=== PATIENT | female | born 1990 | race African-American/Black ===

== ENCOUNTER 2016-10-28 00:52 | Emergency (ER) | payer OTHER ==
[~2016-10-28] VITALS: Ht 157.5 cm; Wt 81.7 kg
--- NOTE | ~2016-10-28 | EKG ---
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
[~2016-10-28 00:52] MED LIST: ADVAIR HFA 230M1 AER; AMOXICILLIN 50500 MG PO; AVELOX400 MG PO; FERROUS SULFAT325 M1 PO; IBUPROFEN 600600 M1 PO; IBUPROFEN 800800 MG PO; INSULIN; LANTUS SOL100 UNIT/1 SQ; LANTUSSOLASTAR; NOVOLOG FL100 UNIT/M SC; PREDNISONE 10 M10 MG PO; TRAMADOL 50 MG50 MG PO
[2016-10-28 01:58] LABS: ABSOLUTE NEUTROPHILS 3.2 thou/uL (1.4-8.2); BASOPHILS 0.5 % (0.0-2.0); EOSINOPHILS 5.4 % (0.0-3.0); HEMATOCRIT 37.5 % (37.0-47.0); HEMOGLOBIN 12.3 gm/dL (12.0-15.0); LYMPHOCYTES 26.3 % (24.0-44.0); MCH 23.1 pg (26.0-34.0); MCHC 32.8 g/dL (28.0-37.0); MCV 70.4 fL (80.0-100.0); MONOCYTES 11.2 % (1.0-8.0); PLATELET COUNT 163 thou/uL (150-400); POLYS 56.6 % (36.0-66.0); RBC 5.33 mil/uL (4.20-5.00); WBC 5.7 thou/uL (4.0-11.0)
[2016-10-28 02:02] LABS: MANUAL DIFF NO
[2016-10-28 02:06] LABS: ANION GAP 9 mmol/L (7-16); BUN 10 mg/dL (7-18); CALCIUM 9.2 mg/dL (8.5-10.1); CHLORIDE 102 mmol/L (98-107); CO2 28 mmol/L (21-32); GLUCOSE 232 mg/dL (74-106); POTASSIUM 3.9 mmol/L (3.5-5.1); SODIUM 139 mmol/L (136-145)
[2016-10-28 02:14] LABS: ALBUMIN 3.4 g/dL (3.4-5.0); ALKALINE PHOSPHATASE 361 U/L (46-116); MAGNESIUM 1.7 mg/dL (1.8-2.4); SGOT 51 U/L (15-37); SGPT 55 U/L (30-65); TOTAL PROTEIN 7.9 g/dL (6.4-8.2); TROPONIN-I < 0.04 ng/mL (<0.04-0.07)
[2016-10-28 02:17] LABS: LARGE PLATELETS OCCASIONAL
[2016-10-28 02:18] LABS: ANISOCYTOSIS 1+; HYPOCHROMASIA SLIGHT
[2016-10-28 02:19] LABS: MICROCYTES 2+; POLYCHROMASIA 1+
[2016-10-28] MEDS ORDERED: DOXYCYCLINE 10100 MG PO (02:42)
[2016-10-28] MEDS ORDERED: PREDNISONE 20 M20 MG PO (02:42)
[2016-10-28] MEDS ORDERED: VENTOLIN HFA 1818 GM (19:20)
== END 2016-10-28 02:53 | disposition home or self-care (01) ==
LOC: ER 00:52
PROVIDERS: Emergency Medicine
DX: J20.9 Acute bronchitis, unspecified (principal); J45.909 Unspecified asthma, uncomplicated; D86.9 Sarcoidosis, unspecified; E11.9 Type 2 diabetes mellitus without complications; Z79.4 Long term (current) use of insulin

== ENCOUNTER 2016-10-28 18:12 | Observation (INO) | payer OTHER ==
[~2016-10-28] VITALS: Ht 157.5 cm; Wt 83.1 kg
--- NOTE | ~2016-10-28 | 2DMMODE ---
[facility] [address] [place] [address] 2 D/M-MODE ECHOCARDIOGRAM Name: YAMILNELIDA ELIZABETH Room #: 200-I ADM IN M.R.#: [id number] Admission: 10/28/16 Attend Phys: Jessi Olivier Discharge: Date of : 89 Date of Service: 10/30/16 1442 Report #: [id number] THIS REPORT FOR: //name// APPROVED REPORT Study performed: 10/30/2016 12:44:38 EXAM: Comprehensive 2D, Doppler, and color-flow Echocardiogram Patient Location: Echo lab Room #: 200 Status: routine BSA: 1.83 HR: 88 bpm BP: 119/78 mmHg Rhythm: NSR Other Information Study Quality: Adequate Indications Diabetes Dyspnea Hx: Sarcoidosis 2D Dimensions RVDd: 33.31 mm LVEF(%): 80.44 (>50%) IVSd: 10.12 (7-11mm) LVOT Diam: 18.69 (18-24mm) LVDd: 35.92 mm PWd: 10.39 (7-11mm) Ascending Ao: 21.98 (22-36mm) LVDs: 18.61 (25-40mm) Aortic Root: 22.62 mm Gonzales's LVEF: 80.44 % Volumes Left Atrial Volume (Systole) Single Plane 4CH: 28.94 mL Single Plane 2CH: 28.42 mL LA ESV Index: 17.43 mL/m2 Aortic Valve AoV Peak Mamadou.: 1.52 m/s AO Peak Gr.: 9.21 mmHg LVOT Max P.95 mmHg LVOT Max V: 1.41 m/s MEJIA Vmax: 2.55 cm2 Mitral Valve [facility] [place] [address] [place] [address] 2 D/M-MODE ECHOCARDIOGRAM Name: YAMILNELIDA [facility] Room #: 200-I [facility] IN ..#: [id number] Admission: 10/28/16 Attend Phys: Jessi Olivier Discharge: Date of : 89 Date of Service: 10/30/16 1442 Report #: [id number] E/A Ratio: 1.4 MV Decel. Time: 229.77 ms MV E Max Mamadou.: 0.99 m/s MV A Mamadou.: 0.70 m/s MV PHT: 66.63 ms IVRT: 73.82 ms Pulmonary Valve PV Peak Mamadou.: 1.43 m/s PV Peak Gr.: 8.20 mmHg Pulmonary Vein P Vein S: 0.62 m/s P Vein D: 0.72 m/s P Vein S/D Ratio: 0.86 Tricuspid Valve TR Peak Mamadou.: 2.79 m/s RAP Estimate: 5.00 mmHg TR Peak Gr.: 31.15 mmHg PA Pressure: 36.00 mmHg Left Ventricle The left ventricle is normal size. There is normal LV segmental wall motion. There is normal left ventricular wall thickness. The left ventricular systolic function is normal. LVEF is 60-65%. The left ventricular diastolic function is normal. Right Ventricle The right ventricle is normal size. The right ventricular systolic function is normal. Atria The left atrium size is normal. The right atrium size is normal. Aortic Valve The aortic valve is normal in structure. No aortic regurgitation is present. There is no aortic valvular stenosis. Mitral Valve The mitral valve is normal in structure. There is no mitral valve regurgitation noted. No evidence of mitral valve stenosis. Tricuspid Valve The tricuspid valve is normal in structure. There is trace tricuspid regurgitation. Estimated PAP of 36mmHg. [address] [address] 2 D/M-MODE ECHOCARDIOGRAM Name: YAMILNELIDA ELIZABETH Room #: 200-I [facility] IN .R.#: [id number] Admission: 10/28/16 Attend Phys: Jessi Olivier Discharge: Date of : 89 Date of Service: 10/30/16 1442 Report #: [id number] Pulmonic Valve Pulmonic valve is not well visualized. There is no pulmonic valvular regurgitation. Great Vessels The aortic root is normal in size. IVC is normal in size and collapses >50% with inspiration. Pericardium There is no pericardial effusion. <Conclusion> The left ventricle is normal size. The left ventricular systolic function is normal. The left ventricular diastolic function is normal. The right ventricle is normal size. The left atrium size is normal. The aortic valve is normal in structure. There is no mitral valve regurgitation noted. There is trace tricuspid regurgitation. Estimated PAP of 36mmHg. <ELECTRONICALLY SIGNED> By: Fernando Mariano MD 10/30/16 1442 144 144 Fernando Mariano MD /INF
--- NOTE | ~2016-10-28 | HC ---
[facility] [place] [place] [address] [address] [place] [address] CONSULTATION Name: NELIDA LOBO Room #: 200-I [facility] Isaac Carter#: [id number] Admission: 10/28/16 Attend Phys: Lico Jean MD Discharge: 10/31/16 Date of : 89 Report #: [id number] THIS REPORT FOR: //name// CC: Mitchel Jean DATE OF SERVICE: 10/29/2016 REASON FOR CONSULTATION: Dyspnea. IMPRESSION: 1. Exacerbation of sarcoid. 2. Bronchitis. 3. History of bronchopulmonary dysplasia. 4. Diabetes. PLAN: Agree with antibiotics. We will see if we can hold off on corticosteroids and continue aerosol therapy, check echocardiogram. We will ask for rheumatology opinion as patient has splenomegaly also. HISTORY OF PRESENT ILLNESS: A very pleasant 26-year-old female with history of diabetes, comes in with exacerbation with cough, shortness of breath. No definite sputum production. Also with hyperglycemia. She initially was seen early in the morning on the , then came back in, in the evening with worsening. This morning, she relates she feels better. PAST SURGICAL HISTORY: Pediatric cardiac surgery, eye surgery and liver biopsy ALLERGIES: None known. SOCIAL HISTORY: Negative tobacco, negative ETOH. FAMILY HISTORY: Positive for sarcoid and I believe lupus. REVIEW OF SYSTEMS: Cough, shortness of breath, wheeze. PHYSICAL EXAMINATION: VITAL SIGNS: Temperature 97.6, pulse 80, respirations 18, BP 148/98. EYES: Negative icterus. NECK: Trachea midline. LUNGS: No wheeze. HEART: Regular. ABDOMEN: Bowel sounds present. EXTREMITIES: Showed no edema. LABORATORY DATA: SGOT 51 and alkaline phosphatase 361. White count 5.7, [facility] [place] [place] [address] [place] [address] CONSULTATION Name: NELIDA LOBO ELIZABETH Room #: 200-I [facility].#: [id number] Admission: 10/28/16 Attend Phys: Lico Jean MD Discharge: 10/31/16 Date of : 89 Report #: [id number] hemoglobin 12.3, platelets 163. Eosinophils 5.4. BNP 47. Chest x-ray, little change with bilateral infiltrates, UCG negative. CT PE protocol showed no emboli, patchy infiltrates bilateral, mediastinal bilateral hilar adenopathy, splenomegaly and cholelithiasis. <ELECTRONICALLY SIGNED> By: Carolyn Reynolds MD 10/31/16 1907 [id number] 0746 Carolyn Reynolds MD /nt
[~2016-10-28 18:12] MED LIST changes: +DOXYCYCLINE 10100 MG PO; +PREDNISONE 20 M20 MG PO
[2016-10-28 18:14] VITALS: BP 125/79
[2016-10-28 18:35] LABS: URINE BILIRUBIN NEGATIVE (Negative); URINE BLOOD NEGATIVE (Negative); URINE COLOR YELLOW; URINE GLUCOSE-RANDOM* 3+ (Negative); URINE KETONES NEGATIVE (Negative); URINE NITRITE NEGATIVE (Negative); URINE PROTEIN (DIPSTICK) NEGATIVE (Negative); URINE SPECIFIC GRAVITY <= 1.005 (1.003-1.035); URINE UROBILINOGEN 0.2 E.U./dl (0.2-1.0)
[2016-10-28] MEDS ORDERED: VENTOLIN HFA 1818 GM (19:20)
[2016-10-28 19:43] LABS: ABSOLUTE NEUTROPHILS 3.7 thou/uL (1.4-8.2); BASOPHILS 0.2 % (0.0-2.0); EOSINOPHILS 0.1 % (0.0-3.0); HEMOGLOBIN 11.5 gm/dL (12.0-15.0); LYMPHOCYTES 16.2 % (24.0-44.0); MCH 23.2 pg (26.0-34.0); MCHC 32.8 g/dL (28.0-37.0); MCV 70.6 fL (80.0-100.0); MONOCYTES 6.3 % (1.0-8.0); PLATELET COUNT 150 thou/uL (150-400); POLYS 77.2 % (36.0-66.0); RBC 4.96 mil/uL (4.20-5.00); WBC 4.7 thou/uL (4.0-11.0)
[2016-10-28 19:55] LABS: CALCIUM 9.1 mg/dL (8.5-10.1); CREATININE 1.1 mg/dL (0.6-1.0); POTASSIUM 4.6 mmol/L (3.5-5.1)
[2016-10-28 19:59] LABS: ALBUMIN 3.2 g/dL (3.4-5.0); DIRECT BILIRUBIN 0.2 mg/dL (<0.1-0.3); TOTAL BILIRUBIN 0.7 mg/dL (<0.1-1.0); TOTAL PROTEIN 7.5 g/dL (6.4-8.2)
[2016-10-28 20:04] LABS: MANUAL DIFF NO
[2016-10-28 22:03] VITALS: BP 143/89
[2016-10-28 22:08] VITALS: BP 143/89
[2016-10-28 22:24] VITALS: BP 146/70
[2016-10-28 22:31] VITALS: BP 145/98
[2016-10-29 00:40] VITALS: BP 135/86
[2016-10-29 03:54] LABS: CALCIUM 8.4 mg/dL (8.5-10.1); POTASSIUM 3.7 mmol/L (3.5-5.1)
[2016-10-29 04:00] VITALS: BP 105/73
[2016-10-29 07:16] VITALS: BP 123/71
[2016-10-29 11:02] VITALS: BP 134/81
[2016-10-29 16:05] VITALS: BP 148/98
[2016-10-29 20:30] VITALS: BP 130/86
[2016-10-30 03:45] VITALS: BP 119/78
[2016-10-30 04:09] LABS: GLYCOHEMOGLOBIN (HGB A1C) 8.5 % (4.8-5.6)
[2016-10-30 04:35] VITALS: BP 113/78
[2016-10-30 06:05] LABS: ABSOLUTE NEUTROPHILS 2.4 thou/uL (1.4-8.2); BASOPHILS 0.6 % (0.0-2.0); EOSINOPHILS 6.5 % (0.0-3.0); HEMATOCRIT 32.2 % (37.0-47.0); HEMOGLOBIN 10.7 gm/dL (12.0-15.0); LYMPHOCYTES 31.6 % (24.0-44.0); MCH 23.4 pg (26.0-34.0); MCHC 33.3 g/dL (28.0-37.0); MCV 70.4 fL (80.0-100.0); MONOCYTES 10.4 % (1.0-8.0); PLATELET COUNT 160 thou/uL (150-400); POLYS 50.9 % (36.0-66.0); RBC 4.57 mil/uL (4.20-5.00); RDW 18.3 % (10.5-14.5); WBC 4.7 thou/uL (4.0-11.0)
[2016-10-30 06:14] LABS: MANUAL DIFF NO
[2016-10-30 06:22] LABS: CALCIUM 9.1 mg/dL (8.5-10.1); CREATININE 0.9 mg/dL (0.6-1.0); MAGNESIUM 1.5 mg/dL (1.8-2.4); POTASSIUM 3.7 mmol/L (3.5-5.1)
[2016-10-30 08:33] LABS: ANISOCYTOSIS 1+; HYPOCHROMASIA 1+; MICROCYTES 3+; PLATELET ESTIMATE NORMAL
[2016-10-30 18:43] VITALS: BP 126/85
[2016-10-31 04:01] VITALS: BP 113/72
[2016-10-31 04:29] LABS: HEMOGLOBIN 10.7 gm/dL (12.0-15.0); MCH 22.9 pg (26.0-34.0); MCHC 32.4 g/dL (28.0-37.0); MCV 70.9 fL (80.0-100.0); PLATELET COUNT 168 thou/uL (150-400); RBC 4.66 mil/uL (4.20-5.00)
[2016-10-31 04:35] LABS: MANUAL DIFF YES
[2016-10-31 04:37] LABS: CALCIUM 9.2 mg/dL (8.5-10.1); CREATININE 0.8 mg/dL (0.6-1.0); MAGNESIUM 1.4 mg/dL (1.8-2.4); POTASSIUM 3.9 mmol/L (3.5-5.1)
[2016-10-31 05:54] LABS: ABSOLUTE NEUTROPHILS 2.8 thou/uL (1.4-8.2); ANISOCYTOSIS 2+; HYPOCHROMASIA SLIGHT; LARGE PLATELETS OCCASIONAL; MICROCYTES 2+; TOTAL CELL COUNT 100
[2016-10-31 08:16] VITALS: BP 100/65
[2016-10-31 10:24] VITALS: BP 100/65
[2016-10-31 11:52] VITALS: BP 121/77
[2016-10-31] MEDS ORDERED: DIFLUCAN200 MG PO (12:03)
[2016-10-31 15:41] VITALS: BP 119/78
[2016-10-31 23:07] LABS: INFLUENZA B Negative (Negative); METAPNEUMOVIRUS Negative (Negative)
== END 2016-10-31 16:00 | disposition home or self-care (01) ==
LOC: ER 18:12 → EROBS 21:09 → 2N 21:09 → ENTRNSPT 10-30 16:26 → EDTRNSPTSTS 10-31 14:43 → EDTRNSPT 10-31 14:53 → 2N 10-31 16:00
PROVIDERS: Internal Medicine; Nurse Practitioner; Nurse Practitioner Acute Care
DX: J40 Bronchitis, not specified as acute or chronic (principal); D86.9 Sarcoidosis, unspecified; F80.82 Social pragmatic communication disorder; E11.9 Type 2 diabetes mellitus without complications
CPT/HCPCS: 27000

== ENCOUNTER 2016-11-18 16:54 | Emergency (ER) | payer OTHER ==
[~2016-11-18] VITALS: Ht 157.5 cm; Wt 83.0 kg
--- NOTE | ~2016-11-18 | EKG ---
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 : 1990 Requested By: Barrera Carballo Order Number: [id number] MD: Neymar Pisano Measurements Intervals [place] Rate: 94 P: 45 IN: 146 QRS: 6 QRSD: 84 T: 1 QT: 348 QTc: 436 Interpretive Statements Sinus rhythm Low voltage, precordial leads Abnormal T, consider ischemia, anterior leads Compared to ECG 10/28/2016 01:08:41 Low QRS voltage now present T-wave abnormality now present Possible ischemia now present Electronically Signed On 11-18-2016 22:47:42 CDT by Neymar Pisano [email or web address] <ELECTRONICALLY SIGNED> By: Neymar Pisano MD 11/18/16 2247 1706 1706 Neymar Pisano MD /EPI
[~2016-11-18 16:54] MED LIST changes: +DIFLUCAN200 MG PO; +VENTOLIN HFA 1818 GM
[2016-11-18 17:58] LABS: BASOPHILS 0.5 % (0.0-2.0); EOSINOPHILS 6.1 % (0.0-3.0); HEMATOCRIT 40.7 % (37.0-47.0); HEMOGLOBIN 13.6 gm/dL (12.0-15.0); LYMPHOCYTES 20.1 % (24.0-44.0); MCH 23.4 pg (26.0-34.0); MCHC 33.4 g/dL (28.0-37.0); MCV 70.1 fL (80.0-100.0); MONOCYTES 11.5 % (1.0-8.0); PLATELET COUNT 166 thou/uL (150-400); POLYS 61.8 % (36.0-66.0); RBC 5.81 mil/uL (4.20-5.00); RDW 18.2 % (10.5-14.5); WBC 4.9 thou/uL (4.0-11.0)
[2016-11-18 17:59] LABS: MANUAL DIFF NO
[2016-11-18 18:06] LABS: URINE BILIRUBIN 1+ (Negative); URINE BLOOD 1+ (Negative); URINE COLOR YELLOW; URINE GLUCOSE-RANDOM* NEGATIVE (Negative); URINE KETONES NEGATIVE (Negative); URINE LEUKOCYTES-REFLEX NEGATIVE (Negative); URINE PROTEIN (DIPSTICK) 2+ (Negative); URINE SPECIFIC GRAVITY 1.025 (1.003-1.035); URINE UROBILINOGEN 0.2 E.U./dl (0.2-1.0)
[2016-11-18 18:08] LABS: ICTOTEST (BILI CONFIRMATORY) Negative (Negative)
[2016-11-18 18:10] LABS: ANION GAP 10 mmol/L (7-16); BUN 6 mg/dL (7-18); CALCIUM 9.6 mg/dL (8.5-10.1); CHLORIDE 102 mmol/L (98-107); CO2 22 mmol/L (21-32); CREATININE 0.8 mg/dL (0.6-1.0); GLUCOSE 212 mg/dL (74-106); POTASSIUM 4.3 mmol/L (3.5-5.1); SODIUM 134 mmol/L (136-145)
[2016-11-18 18:12] LABS: CRYSTALS None Seen /LPF (None Seen); HYALINE CASTS 0-3 Few /LPF (None Seen); SQUAMOUS 0-3 Few /LPF (0-3); URINE RBC 0-2 Rare /HPF (0-2); URINE WBC-REFLEX 0-5 Rare /HPF (0-5)
[2016-11-18 18:16] LABS: ALBUMIN 3.6 g/dL (3.4-5.0); ALKALINE PHOSPHATASE 395 U/L (46-116); SGOT 129 U/L (15-37); SGPT 130 U/L (30-65); TOTAL PROTEIN 8.1 g/dL (6.4-8.2); TROPONIN-I < 0.04 ng/mL (<0.04-0.07)
[2016-11-18 18:34] LABS: MICROCYTES 1+; POLYCHROMASIA OCCASIONAL
[2016-11-18 18:35] LABS: ANISOCYTOSIS 2+; HYPOCHROMASIA 2+
[2016-11-18] MEDS ORDERED: DOXYCYCLINE 10100 MG PO (20:31)
[2016-11-18] MEDS ORDERED: ONDANSETRON HCL4 M2 PO (20:32)
== END 2016-11-18 20:48 | disposition home or self-care (01) ==
LOC: ER 16:54
PROVIDERS: Physician Assistant
DX: D86.9 Sarcoidosis, unspecified (principal); R10.11 Right upper quadrant pain; J18.9 Pneumonia, unspecified organism; R74.0 Nonspecific elevation of levels of transaminase and lactic acid dehydrogenase [LDH]; E11.9 Type 2 diabetes mellitus without complications; Z79.4 Long term (current) use of insulin

== ENCOUNTER → 2017-01-28 | Outpatient (CLI) | payer OTHER ==
[~2017-01-28] MED LIST changes: +AUGMENTIN 875-1 EACH PO; +AZITHROMYCIN 2250 MG PO; +ONDANSETRON HCL4 M2 PO
== END ==
LOC: RAD 12:38
DX: D86.9 Sarcoidosis, unspecified (principal); R06.02 Shortness of breath

== ENCOUNTER 2017-02-17 12:50 | Emergency (ER) | payer OTHER ==
[~2017-02-17] VITALS: Ht 157.5 cm; Wt 81.7 kg
--- NOTE | ~2017-02-17 | EKG ---
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 <ELECTRONICALLY SIGNED> By: Neymar Pisano MD 02/17/17 2326 1531 1531 Neymar Pisano MD /EPI
[2017-02-17 15:19] LABS: ABSOLUTE NEUTROPHILS 3.5 thou/uL (1.4-8.2); BASOPHILS 0.9 % (0.0-2.0); EOSINOPHILS 4.9 % (0.0-3.0); HEMOGLOBIN 12.9 gm/dL (12.0-15.0); LYMPHOCYTES 23.2 % (24.0-44.0); MCH 22.5 pg (26.0-34.0); MCV 68.2 fL (80.0-100.0); MONOCYTES 10.3 % (1.0-8.0); PLATELET COUNT 185 thou/uL (150-400); POLYS 60.7 % (36.0-66.0); RBC 5.73 mil/uL (4.20-5.00); RDW 16.2 % (10.5-14.5); WBC 5.8 thou/uL (4.0-11.0)
[2017-02-17] MEDS ORDERED: TRULICITY0.75 MG/0. (15:37)
[2017-02-17] MEDS ORDERED: PREDNISONE 10 M10 MG PO (15:37)
[2017-02-17 15:38] LABS: CALCIUM 9.8 mg/dL (8.5-10.1); CREATININE 0.9 mg/dL (0.6-1.0); POTASSIUM 4.4 mmol/L (3.5-5.1)
[2017-02-17] MEDS ORDERED: DUONEB 2.5-0.5 M3 ML INH (15:38)
[2017-02-17 15:43] LABS: ALBUMIN 3.5 g/dL (3.4-5.0); TOTAL BILIRUBIN 0.8 mg/dL (<0.1-1.0); TOTAL PROTEIN 7.9 g/dL (6.4-8.2)
[2017-02-17 15:49] LABS: ANISOCYTOSIS 2+; MICROCYTES 2+
[2017-02-17 15:50] LABS: HYPOCHROMASIA SLIGHT; LARGE PLATELETS OCCASIONAL; POLYCHROMASIA OCCASIONAL
[2017-02-17] MEDS ORDERED: PREDNISOLONE 5 M5 MG PO (17:27)
[2017-02-17] MEDS ORDERED: VENTOLIN HFA 1818 GM INH (17:27)
[2017-02-17 17:57] VITALS: BP 121/72
[2017-10-16] MEDS ORDERED: PREDNISONE 5 MG5 M1 PO (08:29)
[2017-10-16] MEDS ORDERED: TRULICITY1.5 MG/0.5 SUBQ (08:30)
[2017-10-16] MEDS ORDERED: FOLIC ACID1 MG PO (08:31)
[2017-10-16] MEDS ORDERED: METHOTREXATE 22.5 MG PO (08:31)
[2017-10-19] MEDS ORDERED: GLUCOPHAGE1000 MG PO (09:56)
[2017-10-19] MEDS ORDERED: PREDNISONE 20 M20 MG PO (09:57)
== END 2017-02-17 18:01 | disposition home or self-care (01) ==
LOC: ER 12:50
PROVIDERS: Physician Assistant
DX: R06.00 Dyspnea, unspecified (principal); R05 Cough; D86.9 Sarcoidosis, unspecified; E11.9 Type 2 diabetes mellitus without complications; Z98.890 Other specified postprocedural states

== ENCOUNTER 2017-02-24 16:42 | Emergency (ER) | payer OTHER ==
[~2017-02-24] VITALS: Ht 157.5 cm; Wt 81.7 kg
[~2017-02-24 16:42] MED LIST changes: +DUONEB 2.5-0.5 M3 ML INH; +PREDNISOLONE 5 M5 MG PO; +TRULICITY0.75 MG/0.; +VENTOLIN HFA 1818 GM INH
[2017-02-24] MEDS ORDERED: ZPAK PO (18:09)
[2017-02-24] MEDS ORDERED: TESSALON PERLE100 MG PO (18:09)
[2017-02-24] MEDS ORDERED: PREDNISONE 5 MG5 MG PO (18:20)
[2017-02-24 18:22] VITALS: BP 123/86
[2017-10-16] MEDS ORDERED: PREDNISONE 5 MG5 M1 PO (08:29)
[2017-10-16] MEDS ORDERED: TRULICITY1.5 MG/0.5 SUBQ (08:30)
[2017-10-16] MEDS ORDERED: FOLIC ACID1 MG PO (08:31)
[2017-10-16] MEDS ORDERED: METHOTREXATE 22.5 MG PO (08:31)
[2017-10-19] MEDS ORDERED: GLUCOPHAGE1000 MG PO (09:56)
[2017-10-19] MEDS ORDERED: PREDNISONE 20 M20 MG PO (09:57)
== END 2017-02-24 18:24 | disposition home or self-care (01) ==
LOC: ER 16:42
DX: J18.9 Pneumonia, unspecified organism (principal); D86.9 Sarcoidosis, unspecified; E11.9 Type 2 diabetes mellitus without complications; Z79.4 Long term (current) use of insulin

== ENCOUNTER → 2017-02-26 | Outpatient (CLI) | payer OTHER ==
[~2017-02-26] MED LIST changes: +BYDUREON P2 MG/0.65 SUBQ; +FOLIC ACID1 MG PO; +GLUCOPHAGE1000 MG PO; +KEFLEX500 M1 PO; +METHOTREXATE 22.5 MG PO; +MUCINEX DM ER1 EACH PO; +NOVOLOG100 UNIT/1 SUBQ; +PREDNISONE 5 MG5 M1 PO; +PREDNISONE 5 MG5 MG PO; +TESSALON PERLE100 MG PO; +TRULICITY1.5 MG/0.5 SUBQ; +ZPAK PO
== END ==
LOC: RAD 13:17
DX: R06.00 Dyspnea, unspecified (principal)

== ENCOUNTER 2017-03-28 19:18 | Emergency (ER) | payer OTHER ==
[~2017-03-28] VITALS: Ht 157.5 cm; Wt 81.7 kg
[~2017-03-28 19:18] MED LIST changes: -BYDUREON P2 MG/0.65 SUBQ; -FOLIC ACID1 MG PO; -GLUCOPHAGE1000 MG PO; -KEFLEX500 M1 PO; -METHOTREXATE 22.5 MG PO; -MUCINEX DM ER1 EACH PO; -NOVOLOG100 UNIT/1 SUBQ; -PREDNISONE 5 MG5 M1 PO; -TRULICITY1.5 MG/0.5 SUBQ
[2017-03-28 20:11] LABS: URINE BILIRUBIN NEGATIVE (Negative); URINE BLOOD TRACE (Negative); URINE CLARITY CLEAR; URINE COLOR YELLOW; URINE GLUCOSE-RANDOM* 2+ (Negative); URINE KETONES NEGATIVE (Negative); URINE LEUKOCYTES NEGATIVE (Negative); URINE NITRITE NEGATIVE (Negative); URINE PROTEIN (DIPSTICK) TRACE (Negative); URINE SPECIFIC GRAVITY >= 1.030 (1.005-1.035); URINE UROBILINOGEN 0.2 E.U./dl (0.2-1.0)
[2017-03-28 20:26] LABS: ABSOLUTE NEUTROPHILS 3.3 thou/uL (1.4-8.2); BASOPHILS 0.7 % (0.0-2.0); EOSINOPHILS 5.2 % (0.0-3.0); HEMATOCRIT 36.1 % (37.0-47.0); LYMPHOCYTES 29.3 % (24.0-44.0); MCH 22.5 pg (26.0-34.0); MCHC 33.2 g/dL (28.0-37.0); MCV 67.8 fL (80.0-100.0); MONOCYTES 9.4 % (1.0-8.0); PLATELET COUNT 211 thou/uL (150-400); POLYS 55.4 % (36.0-66.0); RBC 5.32 mil/uL (4.20-5.00); RDW 17.6 % (10.5-14.5)
[2017-03-28 20:47] LABS: ANISOCYTOSIS 1+; LARGE PLATELETS RARE; MICROCYTES 1+
[2017-03-28 20:53] LABS: CALCIUM 9.1 mg/dL (8.5-10.1); CREATININE 1.1 mg/dL (0.6-1.0); POTASSIUM 3.7 mmol/L (3.5-5.1)
[2017-03-28 21:48] VITALS: BP 136/74
[2017-03-28] MEDS ORDERED: TESSALON PERLE100 MG PO (21:53)
[2017-03-28] MEDS ORDERED: PREDNISONE 20 M20 MG PO (21:53)
[2017-03-28] MEDS ORDERED: AZITHROMYCIN 2250 MG PO (21:53)
[2017-03-31 09:42] LABS: POC ANION GAP Outside Report Range mmol/L (7-16); POC BUN 16 mg/dL (7-18); POC CA IONIZED 2.6 mg/dL (4.5-5.3); POC CHLORIDE 112 mmol/L (98-107); POC CREATININE 1.1 mg/dL (0.6-1.3); POC GLUCOSE 259 mg/dL (70-99); POC HEMOGLOBIN 11.9 g/dL (12.0-15.0); POC POTASSIUM > 7.5 mmol/L (3.5-5.1); POC SODIUM 127 mmol/L (136-145); POC TCO2 Outside Report Range mmol/L (21-32)
[2017-10-16] MEDS ORDERED: PREDNISONE 5 MG5 M1 PO (08:29)
[2017-10-16] MEDS ORDERED: TRULICITY1.5 MG/0.5 SUBQ (08:30)
[2017-10-16] MEDS ORDERED: METHOTREXATE 22.5 MG PO (08:31)
[2017-10-16] MEDS ORDERED: FOLIC ACID1 MG PO (08:31)
[2017-10-19] MEDS ORDERED: GLUCOPHAGE1000 MG PO (09:56)
[2017-10-19] MEDS ORDERED: PREDNISONE 20 M20 MG PO (09:57)
== END 2017-03-28 22:09 | disposition home or self-care (01) ==
LOC: ER 19:18
PROVIDERS: Nurse Practitioner Family
DX: J40 Bronchitis, not specified as acute or chronic (principal); E11.9 Type 2 diabetes mellitus without complications; Z79.4 Long term (current) use of insulin

== ENCOUNTER 2017-03-30 19:25 | Inpatient (IN) | payer OTHER ==
[~2017-03-30] VITALS: Ht 160 cm; Wt 90.7 kg
--- NOTE | ~2017-03-30 | HC ---
[facility] [place] [address] CONSULTATION Name: NELIDA LOBO Room #: 356-P [facility] IN M.R.#: [id number] Admission: 03/30/17 Attend Phys: Bernardo Bello MD Discharge: 04/05/17 Date of : 89 Report #: [id number] THIS REPORT FOR: //name// CC: Bernardo Thompsonie Venancio Mcghee DATE OF SERVICE: 04/03/2017 HISTORY OF PRESENT ILLNESS: This is a 26-year-old female patient who was evaluated by me for the numbness. The symptoms are pretty nonstructured. She indicated that she had numbness, which are present in both lower extremities as well as both upper extremities. Even both side of the face is numb. On the left side, she is complaining of some pain in the face area in addition to the numbness. All these symptoms are pretty nonstructured and poorly defined. REVIEW OF SYSTEMS: Indicate she has a history of sarcoidosis. She takes steroids. She takes supplemental oxygen. 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 She has respiratory problem. She also has been followed by textile worker. She denies any history of anxiety or depression. She denies any history of stroke. Presently, she is being followed by multiple consultants. She does have a history of sarcoidosis. Her MCV is low even if her hemoglobin is normal. Her blood sugar has fluctuated and it has gone as high as 468 recently. This was her relevant 14-point of review of system, which I carried out. PAST MEDICAL HISTORY: Positive for sarcoid. FAMILY HISTORY: Negative for early age stroke. SOCIAL HISTORY: She has supportive family. Her mother was here. She does not smoke. PHYSICAL EXAMINATION: Indicate she is alert, she is responsive. Her speech, concentration, fund of knowledge and memory is at her baseline. Cranial nerve examination 2-12 indicate blindness in the left eye. It is not clear what the etiology was. Initially they thought there was some hole and subsequently they thought it might be sarcoid. When she gives a good effort, she is able to move all 4 extremities. Her position sense is intact. Her reflexes are normal. She complained of pain even when the reflexes are being checked. I cannot tell about fundus. There is no meningeal sign. There is no carotid bruit. She is reasonably well-developed individual. She does not have any dysmorphic features of eyes, ears and face. There is no meningeal sign in this patient. There is no thyroid mass. Pulses are difficult to feel. She has no edema, cyanosis or jaundice. Her hearing looks okay. She does not have any vision in [address] [place] [address] CONSULTATION Name: NELIDA LOBO Room #: 356-P [facility] IN M.R.#: [id number] Admission: 03/30/17 Attend Phys: Bernardo Bello MD Discharge: 04/05/17 Date of : [birth year] Report #: [id number] the left eye. Cardiac examination does not appear to be showing any atrial fibrillation or any definite abnormality. No respiratory difficulty was noted. Blood pressure is 136/89, respirations 18, pulse is 110, temperature is 98.5. White count is 12. Vital signs otherwise appear unremarkable. Her blood pressure is 125/87, respirations 16, pulse 87, temperature is 98.6. She did have an MRI, which was mostly unremarkable. Her last B12 was okay. Her TSH was okay. IMPRESSION: I suspect this patient may have some neuropathy. She is diabetic and she has sarcoid. Both can predispose her for neuropathy. She does not have anything serious like multiple sclerosis. I will exclude any spine pathology by doing an MRI in that region. If that is negative, there is a limited thing neurologically we can do except for doing an EMG as an outpatient. RECOMMENDATIONS: 1. We will do the MRI of the lumbar spine. 2. She will need an EMG as an outpatient. 3. I suspect part of her symptom may be because of neuropathy, both because of her diabetes as well as her sarcoid. I discussed all of it with the patient and the family. I discussed with her our plan and they are agreeable with that plan. Thank you very much for this referral and we will follow this patient along with you. <ELECTRONICALLY SIGNED> By: Bridger Barker MD 04/08/17 0721 1353 181 Bridger Barker MD /nt
--- NOTE | ~2017-03-30 | HC ---
[facility] [address] [place] [address] CONSULTATION Name: NELIDA LOBO Room #: 356-P [facility] IN M.R.#: [id number] Admission: 03/30/17 Attend Phys: Bernardo Bello MD Discharge: 04/05/17 Date of : [birth year] Report #: [id number] THIS REPORT FOR: //name// CC: Mitzy Mcghee DATE OF SERVICE: 03/31/2017 REFERRING PROVIDER: NINA Lucas REASON FOR CONSULTATION: Shortness of breath. HISTORY OF PRESENT ILLNESS: Our group was asked to evaluate the patient in consultation while hospitalized in [facility]. She is followed by Dr. Reynolds of our group and recently referred to [facility] for a second opinion regarding underlying history of sarcoidosis. By patient history, she has history of bronchopulmonary dysplasia associated with prematurity, roughly 25-26 weeks that was complicated by what sounds like persistent circulation requiring surgical intervention, exactly unclear what surgery was done at that time. The patient has had ongoing chronic respiratory problems since that time; however, 3 years ago was diagnosed by liver biopsy with sarcoidosis. The patient has what appears to be on most recent CT imaging chronic fibrotic changes and bronchiectasis anteriorly, predominantly in the middle lobe and lingula, but may have some anterior upper lobe problems as well. She has been having ongoing difficulty with increasing dyspnea, cough and has been on multiple antibiotics recently. Recently seen by Dr. Villasenor in [facility] just a few days ago and her prednisone boosted to 20 mg daily, and had been on chronically 10 mg daily. States she has been difficulty tapering off systemic steroids and starting them about 2 years ago and this has been complicated by diabetes mellitus type 2. On presentation, she had markedly elevated blood sugars. The patient reportedly also has some complicating features from her sarcoidosis including left eye blindness from likely sarcoid related disease that was not diagnosed until after the sarcoid diagnosis. ALLERGIES: None known. PAST MEDICAL HISTORY: 1. Sarcoidosis. 2. Diabetes mellitus type 2. [facility] [address] [place] [address] CONSULTATION Name: NELIDA LOBO ELIZABETH Room #: 356-P [facility] IN M.R.#: [id number] Admission: 03/30/17 Attend Phys: Bernardo Bello MD Discharge: 04/05/17 Date of : 89 Report #: [id number] 3. Chronic fibrotic lung disease associated to #1 as well as to bronchopulmonary dysplasia. PAST SURGICAL HISTORY: Includes: 1. Left thoracotomy with surgical intervention, unclear, according to mom some kind of valvular surgery, although may have been correction of a persistent circulation. 2. Cataract extraction. SOCIAL HISTORY: Never smoker. States she is medically disabled. No alcohol consumption. FAMILY HISTORY: Significant for mother who has systemic lupus erythematosus and a paternal uncle with sarcoidosis. REVIEW OF SYSTEMS: CONSTITUTIONAL: Notes no fever, chills, just some general malaise. ENT: No upper respiratory congestion, rhinorrhea or dysphagia. CARDIOVASCULAR: Some chest heaviness. GASTROINTESTINAL: No nausea, vomiting or abdominal pain. Has known history of hepatic sarcoid. GENITOURINARY: No dysuria, no frequency, no hematuria. INTEGUMENT: No new rash. MUSCULOSKELETAL: No new joint pains or swelling, possible osteo sarcoidosis. PHYSICAL EXAMINATION: VITAL SIGNS: The patient is afebrile, pulse 90s and regular, respiratory rate 22, blood pressure 123/79, oxygen saturation 100% on 3 liters nasal cannula. GENERAL: This is an obese, cushingoid appearing young female who is in no distress. HEENT: Clear oropharynx, Mallampati 2 airway. NECK: Supple, no lymphadenopathy. LUNGS: Basilar inspiratory crackles, no wheezes. CARDIOVASCULAR: Heart was regular. No murmurs appreciated. ABDOMEN: Obese, soft, nontender. No hepatomegaly appreciated. EXTREMITIES: Without edema. They are warm with 2+ pulses. INTEGUMENT: No rash identified. LABORATORY DATA: Chest x-ray revealed diminished lung volumes. There appeared to be a more elevated right hemidiaphragm and possible right pleural effusion. White blood cell count was 7000, hemoglobin 11, hematocrit 35, platelet count of 133. Mean cellular volume 69. Sodium 133, potassium 5.4, chloride 100, bicarbonate 24, BUN 16, creatinine 1.1, glucose is 577, alkaline phosphatase elevated at 239 with the rest of the liver enzymes and bilirubin normal. No LDH was sent. Arterial blood gas on 2 liters revealed pH 7.40, pCO2 of 37, pO2 of 83, and bicarbonate 22. [address] [address] CONSULTATION Name: YAMIL,NELIDA JOHNSON Room #: 356-P [facility] IN M.R.#: [id number] Admission: 03/30/17 Attend Phys: Bernardo Bello MD Discharge: 04/05/17 Date of : [birth year] Report #: [id number] IMPRESSION: 1. Acute on chronic hypoxemic respiratory failure. Some concern with possible right pleural effusion or community-acquired pneumonia failing outpatient therapy would also be of concern given her history of bronchiectasis and fibrosis. She may have some chronic infectious process such as atypical Mycobacterium or other resistant pathogen to current antimicrobial therapy. Cultures would be warranted. Consideration for bronchoscopy should also be made. 2. History of sarcoidosis, requiring chronic systemic steroids for management, recently followed by the [facility] at [facility]. 3. Elevated alkaline phosphatase. 4. History of bronchopulmonary dysplasia. 5. Obesity. 6. Diabetes mellitus, poorly controlled at present. 7. Chronic systemic corticosteroids. 8. Hyperkalemia. SUGGESTIONS: 1. Add Levaquin. 2. Sputum for routine and AFB cultures. 3. Decubitus x-rays to evaluate for possible right pleural effusion, consider thoracentesis if present. 4. Boost steroids for now. 5. Continue with bronchodilators for airway clearance. 6. Better management of diabetes mellitus type 2. Defer to primary team. 7. Dr. Reynolds to assume care of this patient when available. 8. We will also check echocardiogram. Thank you for requesting our suggestions. <ELECTRONICALLY SIGNED> By: Thierry Nieto MD 04/11/17 1452 1128 1925 Thierry Nieto MD /nt
--- NOTE | ~2017-03-30 | EKG ---
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: MERLIN : 1990 Requested By: Shoaib Roberts Order Number: [id number] MD: Peter Bernal Measurements Intervals [place] Rate: 109 P: 53 CA: 144 QRS: 15 QRSD: 82 T: 36 QT: 327 QTc: 441 Interpretive Statements Sinus tachycardia Low voltage, precordial leads Compared to ECG 02/17/2017 15:31:04 Anterior T wave abnormality no longer present Electronically Signed On 03-31-2017 8:04:46 SLEEPER CUTTER by Peter Bernal [email or web address] <ELECTRONICALLY SIGNED> By: Peter Bernal MD, [facility] 03/31/17 0804 00 00 Peter Bernal MD, [facility] /EPI
--- NOTE | ~2017-03-30 | 2DMMODE ---
[facility] [address] [place] [address] 2 D/M-MODE ECHOCARDIOGRAM Name: YAMILNELIDA JOHNSON Room #: 356-P ADM IN M.R.#: [id number] Admission: 03/30/17 Attend Phys: Bernardo Bello, Discharge: Date of : 89 Date of Service: 03/31/17 1442 Report #: [id number] THIS REPORT FOR: //name// APPROVED REPORT Study performed: 03/31/2017 14:02:30 EXAM: Comprehensive 2D, Doppler, and color-flow Echocardiogram Patient Location: Echo lab Room #: 356 Status: routine BSA: 1.91 HR: 105 bpm BP: 123/79 mmHg Rhythm: Tachycardia Other Information Study Quality: Adequate Indications Dyspnea/sarcoidosis, DM 2D Dimensions RVDd: 27.42 mm LVEF(%): 62.16 (>50%) IVSd: 9.70 (7-11mm) LVOT Diam: 18.51 (18-24mm) LVDd: 41.33 mm PWd: 10.05 (7-11mm) Ascending Ao: 24.03 (22-36mm) LVDs: 27.64 (25-40mm) Aortic Root: 26.18 mm Gonzales's LVEF: 62.16 % Volumes Left Atrial Volume (Systole) Single Plane 4CH: 28.97 mL Single Plane 2CH: 34.15 mL LA ESV Index: 18.00 mL/m2 Aortic Valve AoV Peak Mamadou.: 1.68 m/s AO Peak Gr.: 11.26 mmHg LVOT Max P.90 mmHg LVOT Max V: 1.31 m/s MEJIA Vmax: 2.10 cm2 Mitral Valve E/A Ratio: 1.1 MV Decel. Time: 220.02 ms [facility] [place] [address] 2 D/M-MODE ECHOCARDIOGRAM Name: YAMILNELIDA [place] Room #: 356-P [facility] IN M.R.#: [id number] Admission: 03/30/17 Attend Phys: Bernardo Bello, Discharge: Date of : 89 Date of Service: 03/31/17 1442 Report #: [id number] MV E Max Mamadou.: 0.92 m/s MV A Mamadou.: 0.82 m/s MV PHT: 63.80 ms IVRT: 66.90 ms Pulmonary Valve PV Peak Mamadou.: 1.35 m/s PV Peak Gr.: 7.25 mmHg Left Ventricle The left ventricle is normal size. There is normal LV segmental wall motion. There is normal left ventricular wall thickness. Left ventricular systolic function is normal. LVEF is 65%. The left ventricular diastolic function is normal. Right Ventricle The right ventricle is normal size. The right ventricular systolic function is normal. Atria The left atrium size is normal. The right atrium size is normal. Aortic Valve The aortic valve is normal in structure. No aortic regurgitation is present. There is no aortic valvular stenosis. Mitral Valve The mitral valve is normal in structure. There is no mitral valve regurgitation noted. No evidence of mitral valve stenosis. Tricuspid Valve The tricuspid valve is normal in structure. There is no tricuspid valve regurgitation noted. Unable to assess PA pressure. Pulmonic Valve Pulmonic valve is not well visualized. Great Vessels The aortic root is normal in size. The ascending aorta is normal in size. IVC is not well visualized. Pericardium There is no pericardial effusion. <Conclusion> The left ventricle is normal size. [place] [id number] 2 D/M-MODE ECHOCARDIOGRAM Name: YAMILNELIDA JOHNSON Room #: 356-P [facility] IN M.R.#: [id number] Admission: 03/30/17 Attend Phys: Bernardo Bello, Discharge: Date of : 89 Date of Service: 03/31/17 1442 Report #: [id number] There is normal left ventricular wall thickness. Left ventricular systolic function is normal. The right ventricle is normal size. The left atrium size is normal. There is no aortic valvular stenosis. There is no mitral valve regurgitation noted. There is no pericardial effusion. <ELECTRONICALLY SIGNED> By: Fernando Mariano MD 03/31/17 1442 144 144 Fernando Mariano MD /INF
[2017-03-30 19:33] VITALS: BP 145/84
[2017-03-30 20:02] LABS: POC CA IONIZED 4.4 mg/dL (4.5-5.3); POC CREATININE 0.9 mg/dL (0.6-1.3); POC HEMOGLOBIN 13.3 g/dL (12.0-15.0); POC POTASSIUM 4.5 mmol/L (3.5-5.1)
[2017-03-30 20:11] LABS: HEMATOCRIT 37.5 % (37.0-47.0); HEMOGLOBIN 12.1 gm/dL (12.0-15.0); MCH 22.1 pg (26.0-34.0); MCHC 32.3 g/dL (28.0-37.0); MCV 68.2 fL (80.0-100.0); RBC 5.5 mil/uL (4.20-5.00); RDW 16.9 % (10.5-14.5); WBC 6.1 thou/uL (4.0-11.0)
[2017-03-30 20:13] LABS: ANION GAP 9 mmol/L (7-16); BUN 17 mg/dL (7-18); CALCIUM 9.2 mg/dL (8.5-10.1); CHLORIDE 100 mmol/L (98-107); CO2 24 mmol/L (21-32); CREATININE 1.2 mg/dL (0.6-1.0); GLUCOSE 436 mg/dL (74-106); POTASSIUM 4.5 mmol/L (3.5-5.1); SODIUM 133 mmol/L (136-145)
[2017-03-30 20:22] LABS: ALBUMIN 3.7 g/dL (3.4-5.0); SGOT 30 U/L (15-37); SGPT 48 U/L (30-65); TOTAL BILIRUBIN 0.6 mg/dL (<0.1-1.0); TROPONIN-I < 0.04 ng/mL (<0.06)
[2017-03-30 20:41] LABS: BE(vivo) -2.4 mmol/L (-2 to +3); PCO2 36.6 mmHg (35.0-45.0); PO2 82.7 mmHg (80.0-100.0); pH 7.397 (7.360-7.450); sO2 96.2 % (92.0-98.0)
[2017-03-30 23:23] VITALS: BP 133/84
[2017-03-30 23:50] VITALS: BP 138/90
[2017-03-31 04:40] VITALS: BP 134/85
[2017-03-31 04:42] LABS: HEMATOCRIT 34.5 % (37.0-47.0); HEMOGLOBIN 11.1 gm/dL (12.0-15.0); MCH 22.1 pg (26.0-34.0); MCHC 32.1 g/dL (28.0-37.0); RBC 5.01 mil/uL (4.20-5.00); RDW 16.8 % (10.5-14.5); WBC 6.8 thou/uL (4.0-11.0)
[2017-03-31 04:55] LABS: CALCIUM 9.2 mg/dL (8.5-10.1); CREATININE 1.1 mg/dL (0.6-1.0); POTASSIUM 5.4 mmol/L (3.5-5.1)
[2017-03-31 09:01] VITALS: BP 123/79
[2017-03-31 12:01] VITALS: BP 130/83
[2017-03-31 15:46] VITALS: BP 132/83
[2017-03-31 21:35] VITALS: BP 120/80
[2017-04-01 04:10] VITALS: BP 123/90
[2017-04-01 08:45] VITALS: BP 129/80
[2017-04-01 10:29] LABS: HEMATOCRIT 33.5 % (37.0-47.0); MCH 22.4 pg (26.0-34.0); MCHC 32.9 g/dL (28.0-37.0); MCV 68.2 fL (80.0-100.0); RBC 4.91 mil/uL (4.20-5.00); WBC 8.5 thou/uL (4.0-11.0)
[2017-04-01 10:43] LABS: CALCIUM 9.7 mg/dL (8.5-10.1); CREATININE 1.3 mg/dL (0.6-1.0); MAGNESIUM 1.9 mg/dL (1.8-2.4); POTASSIUM 4.5 mmol/L (3.5-5.1)
[2017-04-01 13:35] VITALS: BP 130/72
[2017-04-01 16:05] VITALS: BP 135/72
[2017-04-01 20:00] VITALS: BP 111/79
[2017-04-01 20:06] LABS: GLYCOHEMOGLOBIN (HGB A1C) 8.7 % (4.8-5.6)
[2017-04-02 04:00] VITALS: BP 123/87
[2017-04-02 06:08] LABS: HEMATOCRIT 33.7 % (37.0-47.0); HEMOGLOBIN 10.9 gm/dL (12.0-15.0); MCH 22.4 pg (26.0-34.0); MCHC 32.3 g/dL (28.0-37.0); MCV 69.2 fL (80.0-100.0); RBC 4.87 mil/uL (4.20-5.00); RDW 17.2 % (10.5-14.5); WBC 8.3 thou/uL (4.0-11.0)
[2017-04-02 06:25] LABS: CALCIUM 9.3 mg/dL (8.5-10.1); CREATININE 1.3 mg/dL (0.6-1.0); POTASSIUM 4.7 mmol/L (3.5-5.1)
[2017-04-02 07:11] LABS: ESR (SEDRATE) 10 mm/hr (0-20)
[2017-04-02 07:33] VITALS: BP 132/82
[2017-04-02 15:54] VITALS: BP 115/71
[2017-04-02 19:15] VITALS: BP 124/83
[2017-04-03 03:53] VITALS: BP 129/76
[2017-04-03 05:32] LABS: HEMATOCRIT 34.8 % (37.0-47.0); HEMOGLOBIN 11.2 gm/dL (12.0-15.0); MCH 22.1 pg (26.0-34.0); MCHC 32.2 g/dL (28.0-37.0); MCV 68.7 fL (80.0-100.0); RBC 5.07 mil/uL (4.20-5.00); RDW 17.3 % (10.5-14.5); WBC 11.8 thou/uL (4.0-11.0)
[2017-04-03 05:46] LABS: CREATININE 1.2 mg/dL (0.6-1.0); MAGNESIUM 1.8 mg/dL (1.8-2.4); POTASSIUM 4.9 mmol/L (3.5-5.1)
[2017-04-03 09:06] VITALS: BP 131/87
[2017-04-03 12:01] VITALS: BP 125/87
[2017-04-03 13:10] LABS: TSH 0.466 uIU/mL (0.358-3.740)
[2017-04-03 17:46] VITALS: BP 135/82
[2017-04-03 19:10] VITALS: BP 137/91
[2017-04-03 21:09] LABS: GLYCOHEMOGLOBIN (HGB A1C) 8.9 % (4.8-5.6)
[2017-04-03 23:06] LABS: ADENOVIRUS Negative (Negative); INFLUENZA A Negative (Negative); INFLUENZA B Negative (Negative); METAPNEUMOVIRUS Negative (Negative); PARAINFLUENZA 1 Negative (Negative); PARAINFLUENZA 2 Negative (Negative); PARAINFLUENZA 3 Negative (Negative); RHINOVIRUS Negative (Negative); RSV A Negative (Negative); RSV B Negative (Negative)
[2017-04-04 04:20] VITALS: BP 123/83
[2017-04-04 07:15] LABS: HEMOGLOBIN 12.4 gm/dL (12.0-15.0); MCH 22.1 pg (26.0-34.0); MCHC 32.5 g/dL (28.0-37.0); MCV 67.9 fL (80.0-100.0); RBC 5.59 mil/uL (4.20-5.00); RDW 17.3 % (10.5-14.5); WBC 17.4 thou/uL (4.0-11.0)
[2017-04-04 07:28] LABS: CALCIUM 9.7 mg/dL (8.5-10.1); MAGNESIUM 1.8 mg/dL (1.8-2.4); POTASSIUM 4.7 mmol/L (3.5-5.1)
[2017-04-04 07:51] VITALS: BP 133/82
[2017-04-04 12:02] VITALS: BP 123/77
[2017-04-04 16:10] VITALS: BP 117/83
[2017-04-04 18:07] LABS: IgA 224 mg/dL (87-352); IgG 850 mg/dL (700-1600); IgM 122 mg/dL (26-217)
[2017-04-04 19:30] VITALS: BP 108/78
[2017-04-05 04:31] LABS: HEMATOCRIT 38.8 % (37.0-47.0); HEMOGLOBIN 12.3 gm/dL (12.0-15.0); MCHC 31.7 g/dL (28.0-37.0); MCV 69.5 fL (80.0-100.0); RBC 5.58 mil/uL (4.20-5.00); RDW 17.4 % (10.5-14.5); WBC 20.4 thou/uL (4.0-11.0)
[2017-04-05 04:40] VITALS: BP 120/78
[2017-04-05 04:50] LABS: CALCIUM 9.5 mg/dL (8.5-10.1); POTASSIUM 3.9 mmol/L (3.5-5.1)
[2017-04-05 08:08] VITALS: BP 100/67
[2017-04-05] MEDS ORDERED: PREDNISONE 10 M10 MG PO (09:36)
[2017-04-05 10:13] VITALS: BP 100/67
[2017-04-07 16:06] LABS: T-SPOT.TB Negative
[2017-10-16] MEDS ORDERED: PREDNISONE 5 MG5 M1 PO (08:29)
[2017-10-16] MEDS ORDERED: TRULICITY1.5 MG/0.5 SUBQ (08:30)
[2017-10-16] MEDS ORDERED: FOLIC ACID1 MG PO (08:31)
[2017-10-16] MEDS ORDERED: METHOTREXATE 22.5 MG PO (08:31)
[2017-10-19] MEDS ORDERED: GLUCOPHAGE1000 MG PO (09:56)
[2017-10-19] MEDS ORDERED: PREDNISONE 20 M20 MG PO (09:57)
== END 2017-04-05 11:02 | disposition home or self-care (01) | DRG 196 ==
LOC: ER 19:25 → EROBS 21:12 → 3W 21:12
PROVIDERS: Emergency Medicine; Internal Medicine; Internal Medicine Pulmonary Disease; Nurse Practitioner Family; Psychiatry & Neurology Neuromuscular Medicine
PROC: 05HY33Z Insertion of Infusion Device into Upper Vein, Percutaneous Approach (ICD-10-PCS; principal; 2017-03-31)
DX: D86.9 Sarcoidosis, unspecified (principal); J96.21 Acute and chronic respiratory failure with hypoxia; E66.9 Obesity, unspecified; E87.5 Hyperkalemia; E11.65 Type 2 diabetes mellitus with hyperglycemia; E11.40 Type 2 diabetes mellitus with diabetic neuropathy, unspecified; H54.62 Unqualified visual loss, left eye, normal vision right eye; T38.0X5A Adverse effect of glucocorticoids and synthetic analogues, initial encounter; Y92.89 Other specified places as the place of occurrence of the external cause; Z83.3 Family history of diabetes mellitus; Z68.35 Body mass index [BMI] 35.0-35.9, adult
CPT/HCPCS: 10779; 27001

== ENCOUNTER 2017-05-26 16:13 | Emergency (ER) | payer OTHER ==
[~2017-05-26] VITALS: Ht 157.5 cm; Wt 84.4 kg
[2017-05-26 18:10] LABS: ABSOLUTE NEUTROPHILS 4.3 thou/uL (1.4-8.2); BASOPHILS 0.4 % (0.0-2.0); EOSINOPHILS 0.3 % (0.0-3.0); HEMATOCRIT 40.7 % (37.0-47.0); HEMOGLOBIN 12.7 gm/dL (12.0-15.0); MCH 21.6 pg (26.0-34.0); MCHC 31.3 g/dL (28.0-37.0); MONOCYTES 6.3 % (1.0-8.0); PLATELET COUNT 189 thou/uL (150-400); RBC 5.89 mil/uL (4.20-5.00); RDW 17.1 % (10.5-14.5); WBC 6.2 thou/uL (4.0-11.0)
[2017-05-26 18:11] LABS: CALCIUM 10.1 mg/dL (8.5-10.1); CREATININE 0.9 mg/dL (0.6-1.0); POTASSIUM 4.9 mmol/L (3.5-5.1)
== END 2017-05-26 19:02 | disposition home or self-care (01) ==
LOC: ER 16:13
PROVIDERS: Physician Assistant
DX: D86.9 Sarcoidosis, unspecified (principal); R05 Cough

== ENCOUNTER 2017-08-16 15:50 | Emergency (ER) | payer OTHER ==
[~2017-08-16] VITALS: Ht 157.5 cm; Wt 86.2 kg
[2017-08-16] MEDS ORDERED: BYDUREON P2 MG/0.65 SUBQ (16:04)
[2017-08-16 16:46] LABS: ABSOLUTE NEUTROPHILS 5.5 thou/uL (1.4-8.2); BASOPHILS 0.9 % (0.0-2.0); EOSINOPHILS 1.8 % (0.0-3.0); HEMATOCRIT 39.1 % (37.0-47.0); HEMOGLOBIN 12.8 gm/dL (12.0-15.0); LYMPHOCYTES 15.1 % (24.0-44.0); MCH 21.9 pg (26.0-34.0); MCHC 32.9 g/dL (28.0-37.0); MCV 66.5 fL (80.0-100.0); MONOCYTES 7.5 % (1.0-8.0); PLATELET COUNT 165 thou/uL (150-400); POLYS 74.7 % (36.0-66.0); RBC 5.87 mil/uL (4.20-5.00); RDW 18.8 % (10.5-14.5); WBC 7.4 thou/uL (4.0-11.0)
[2017-08-16 16:54] LABS: CALCIUM 8.8 mg/dL (8.5-10.1); CREATININE 1.3 mg/dL (0.6-1.0); POTASSIUM 4.2 mmol/L (3.5-5.1)
[2017-08-16 17:20] LABS: ANISOCYTOSIS 2+; HYPOCHROMASIA 2+; LARGE PLATELETS FEW; MICROCYTES 2+
[2017-08-16] MEDS ORDERED: PREDNISONE 20 M20 MG PO (17:23)
[2017-08-16] MEDS ORDERED: DOXYCYCLINE 10100 MG PO (17:23)
== END 2017-08-16 18:01 | disposition home or self-care (01) ==
LOC: ER 15:50
PROVIDERS: Physician Assistant
DX: J18.9 Pneumonia, unspecified organism (principal); E11.9 Type 2 diabetes mellitus without complications; D86.9 Sarcoidosis, unspecified

== ENCOUNTER 2017-08-18 19:52 | Inpatient (IN) | payer OTHER ==
[~2017-08-18] VITALS: Ht 157.5 cm; Wt 90.7 kg
[~2017-08-18 19:52] MED LIST changes: +BYDUREON P2 MG/0.65 SUBQ
[2017-08-18 19:54] VITALS: BP 136/96
[2017-08-18] MEDS ORDERED: PREDNISONE 20 M20 MG PO (19:58)
[2017-08-18 20:52] LABS: ABSOLUTE NEUTROPHILS 6.9 thou/uL (1.4-8.2); BASOPHILS 0.4 % (0.0-2.0); EOSINOPHILS 0.1 % (0.0-3.0); HEMATOCRIT 36.6 % (37.0-47.0); HEMOGLOBIN 11.8 gm/dL (12.0-15.0); LYMPHOCYTES 16.7 % (24.0-44.0); MCH 21.8 pg (26.0-34.0); MCHC 32.4 g/dL (28.0-37.0); MCV 67.3 fL (80.0-100.0); MONOCYTES 7.8 % (1.0-8.0); PLATELET COUNT 205 thou/uL (150-400); RBC 5.44 mil/uL (4.20-5.00); RDW 19.1 % (10.5-14.5); WBC 9.3 thou/uL (4.0-11.0)
[2017-08-18 20:53] LABS: URINE BILIRUBIN NEGATIVE (Negative); URINE BLOOD 3+ (Negative); URINE CLARITY CLEAR; URINE COLOR YELLOW; URINE GLUCOSE-RANDOM* 3+ (Negative); URINE KETONES NEGATIVE (Negative); URINE LEUKOCYTES-REFLEX NEGATIVE (Negative); URINE NITRITE-REFLEX NEGATIVE (Negative); URINE PROTEIN (DIPSTICK) NEGATIVE (Negative); URINE SPECIFIC GRAVITY <= 1.005 (1.005-1.035); URINE UROBILINOGEN 0.2 E.U./dl (0.2-1.0)
[2017-08-18 21:00] LABS: BACTERIA-REFLEX 1-9 Few /HPF (None Seen); CASTS None Seen /LPF (None Seen); CRYSTALS None Seen /LPF (None Seen); SQUAMOUS 0-3 Few /LPF (0-3); URINE RBC >20 Many /HPF (0-2); URINE WBC-REFLEX None Seen /HPF (0-5)
[2017-08-18 21:09] LABS: CALCIUM 9.3 mg/dL (8.5-10.1); CREATININE 1.5 mg/dL (0.6-1.0)
[2017-08-18 22:04] LABS: ANISOCYTOSIS 2+
[2017-08-18 22:05] LABS: HYPOCHROMASIA 1+; LARGE PLATELETS FEW; MICROCYTES 2+; OVALOCYTES OCCASIONAL
[2017-08-18 22:33] VITALS: BP 136/80
[2017-08-18 23:21] VITALS: BP 121/75
[2017-08-19 00:05] VITALS: BP 147/84
[2017-08-19] MEDS ORDERED: MUCINEX DM ER1 EACH PO (00:15)
[2017-08-19] MEDS ORDERED: KEFLEX500 M1 PO (00:16)
[2017-08-19 03:39] VITALS: BP 111/64
[2017-08-19 07:58] LABS: POTASSIUM 3.4 mmol/L (3.5-5.1)
[2017-08-19 07:59] LABS: CALCIUM 8.8 mg/dL (8.5-10.1)
[2017-08-19 08:06] VITALS: BP 125/76
[2017-08-19] MEDS ORDERED: NOVOLOG100 UNIT/1 SUBQ (13:44)
[2017-08-19 14:16] VITALS: BP 125/76
[2017-08-21 23:06] LABS: ADENOVIRUS Negative (Negative); INFLUENZA A Negative (Negative); INFLUENZA B Negative (Negative); METAPNEUMOVIRUS Positive (Negative); PARAINFLUENZA 1 Negative (Negative); PARAINFLUENZA 2 Negative (Negative); PARAINFLUENZA 3 Negative (Negative); RHINOVIRUS Negative (Negative); RSV A Negative (Negative); RSV B Negative (Negative)
== END 2017-08-19 15:00 | disposition home or self-care (01) | DRG 682 ==
LOC: ER 19:52 → EROBS 22:11 → 4W 08-19 → ENTRNSPT 08-19 14:26 → EDTRNSPTSTS 08-19 14:28 → 4W 08-19 15:00
PROVIDERS: Emergency Medicine; Nurse Practitioner Acute Care
DX: N17.9 Acute kidney failure, unspecified (principal); J18.9 Pneumonia, unspecified organism; N39.0 Urinary tract infection, site not specified; J96.10 Chronic respiratory failure, unspecified whether with hypoxia or hypercapnia; E11.65 Type 2 diabetes mellitus with hyperglycemia; E11.40 Type 2 diabetes mellitus with diabetic neuropathy, unspecified; D86.0 Sarcoidosis of lung; Z79.4 Long term (current) use of insulin; Z79.899 Other long term (current) drug therapy; Z83.3 Family history of diabetes mellitus; Z83.6 Family history of other diseases of the respiratory system

== ENCOUNTER 2019-08-22 16:56 | Inpatient (IN) | payer OTHER ==
[~2019-08-22] VITALS: Ht 154.9 cm; Wt 81.7 kg
[~2019-08-22 16:56] MED LIST changes: +FOLIC ACID1 MG PO; +GLUCOPHAGE1000 MG PO; +KEFLEX500 M1 PO; +METHOTREXATE 22.5 MG PO; +MUCINEX DM ER1 EACH PO; +NOVOLOG100 UNIT/1 SUBQ; +PREDNISONE 5 MG5 M1 PO; +TRULICITY1.5 MG/0.5 SUBQ
[2019-08-22 16:59] VITALS: BP 131/84
[2019-08-22 17:43] LABS: URINE BILIRUBIN NEGATIVE (Negative); URINE BLOOD NEGATIVE (Negative); URINE CLARITY CLEAR; URINE COLOR YELLOW; URINE GLUCOSE-RANDOM* 3+ (Negative); URINE KETONES NEGATIVE (Negative); URINE LEUKOCYTES-REFLEX NEGATIVE (Negative); URINE NITRITE-REFLEX NEGATIVE (Negative); URINE PROTEIN (DIPSTICK) NEGATIVE (Negative); URINE UROBILINOGEN 0.2 E.U./dl (0.2-1.0)
[2019-08-22 18:57] LABS: BE(vivo) -0.6 mmol/L (-2 to +3); HCO3 22.8 mmol/L (22.0-26.0); PCO2 VENOUS 34.4 mmHg (41.0-51.0); PO2 VENOUS 74.4 mmHg (35.0-45.0)
[2019-08-22 19:08] LABS: ALBUMIN 3.9 g/dL (3.4-5.0); ANION GAP 11 mmol/L (7-16); BUN 16 mg/dL (7-18); CALCIUM 10.3 mg/dL (8.5-10.1); CHLORIDE 91 mmol/L (98-107); CO2 26 mmol/L (21-32); CREATININE 1.2 mg/dL (0.6-1.0); SGOT 123 U/L (15-37); SGPT 180 U/L (30-65); SODIUM 128 mmol/L (136-145); TOTAL PROTEIN 8.5 g/dL (6.4-8.2); TROPONIN-I <0.06 ng/mL (<0.06)
[2019-08-22 19:10] LABS: GLUCOSE 579 mg/dL (74-106)
[2019-08-22 19:14] LABS: MAGNESIUM 1.9 mg/dL (1.8-2.4)
[2019-08-22 19:52] LABS: HEMATOCRIT 43.2 % (37.0-47.0); HEMOGLOBIN 14.7 gm/dL (12.0-15.0); MCH 26.9 pg (26.0-34.0); MCHC 34.1 g/dL (28.0-37.0); MCV 78.9 fL (80.0-100.0); RBC 5.47 mil/uL (4.20-5.00); RDW 14.8 % (10.5-14.5); WBC 6.3 thou/uL (4.0-11.0)
[2019-08-22 21:12] VITALS: BP 127/78
[2019-08-22] MEDS ORDERED: MYCOPHENOLATE500 MG PO (21:16)
[2019-08-22] MEDS ORDERED: CELLCEPT500 MG PO (21:19)
[2019-08-22] MEDS ORDERED: ENVARSUS XR4 MG PO (21:23)
[2019-08-22 21:36] LABS: CALCIUM 9.1 mg/dL (8.5-10.1); CREATININE 0.9 mg/dL (0.6-1.0); MAGNESIUM 1.7 mg/dL (1.8-2.4); PHOSPHORUS 3.6 mg/dL (2.5-4.9); POTASSIUM 4.2 mmol/L (3.5-5.1)
[2019-08-22 22:05] VITALS: BP 153/87
[2019-08-22 22:30] VITALS: BP 125/82
[2019-08-22 22:35] VITALS: BP 125/82
[2019-08-23] MEDS ORDERED: FUROSEMIDE 20 M20 MG PO (00:13)
[2019-08-23] MEDS ORDERED: FLONASE 0.05%50 MCG NASAL (00:15)
[2019-08-23] MEDS ORDERED: HUMIRA40 MG/0.1 SQ (00:18)
[2019-08-23 04:11] VITALS: BP 111/64
[2019-08-23 05:35] LABS: HEMATOCRIT 38.8 % (37.0-47.0); HEMOGLOBIN 12.8 gm/dL (12.0-15.0); MCH 26.3 pg (26.0-34.0); MCHC 32.9 g/dL (28.0-37.0); RBC 4.86 mil/uL (4.20-5.00); RDW 14.7 % (10.5-14.5); WBC 4.6 thou/uL (4.0-11.0)
[2019-08-23 07:45] VITALS: BP 104/63
[2019-08-23 07:46] VITALS: BP 104/63
--- NOTE | 2019-08-23 07:46 | NUR ---
PT AOX4. PT DENIES PAIN. PT REPORTS SOB WITH EXERTION. BEDREST ORDERED. PT AMBULATING TO BATHROOM WITH STANDBY ASSIST, GAIT NOTED TO BE STEADY. PT AMBULATES WIH OXYGEN WITHOUT DESATURATION. PT TOLERATING PO INTAKE OF FLUIDS AND CARB CONTROLLED DIET. PT CONTINUES WITH ACCUCHECKS Q1HR. PT REPORTS DIFFICULTY WITH FALLING ASLEEP. DIRECTOR OF FRONT OFFICE ELECTRICIAN SUBSTATION NOTIFIED, RECEIVED ORDERS FOR 10MG MELATONIN PO QHS FOR SLEEP. PT NOTED TO HAVE BRIEF PERIODS OF REST. FREQUENT REPOSITIONING ENCOURAGED. PT NOTED TO SHIFT INDEPENDENTLY WHILE IN BED. ENCOURAGED PT TO NOTIFY STAFF FOR ALL NEEDS. PT ORIENTED TO ROOM AND UNIT. CALL LIGHT WITHIN REACH, BED ALARM ON, BED IN LOWEST POSITION. WILL CONTINUE TO MONITOR.
--- NOTE | 2019-08-23 09:13 | EKG ---
[facility] [place] [address] [place] [address] ELECTROCARDIOGRAM REPORT Name: NELIDA LOBO Room #: 354-P ADM IN M.R.#: [id number] Admission: 08/22/19 Attend Phys: Bernardo Bello MD Discharge: Date of : 89 Report #: [id number] THIS REPORT FOR: cc: ERIC ANDERSON MD, LINDSAY N MD Lundgren,Peter aB MD [facility] ~ THIS REPORT FOR: //name// [facility] ED Test Date: 2019-08-22 Test Time: 19:42:47 Pat Name: NELIDA LOBO Department: Room: [facility] Gender: F Pega Developer: cosmo : 1990 Requested By: Tanya Rosenberg Order Number: [id number] MD: Peter Bernal Measurements Intervals [place] Rate: 93 P: 37 HI: 147 QRS: 2 QRSD: 81 T: 12 QT: 337 QTc: 420 Interpretive Statements Sinus rhythm RSR' in V1 or V2, probably normal variant Nonspecific T abnormalities, anterior leads Compared to ECG 10/17/2017 10:23:59 RSR' in V1 or V2 now present T-wave abnormality now present Electronically Signed On 08-23-2019 9:13:08 CDT by Peter Bernal [email or web address] <ELECTRONICALLY SIGNED> By: Peter Bernal MD, [facility] 08/23/19912 41 41 Peter Bernal MD, [facility] /EPI
--- NOTE | 2019-08-23 12:35 | NUR ---
PT ASSESSED, VSS, REIVEWED POC, PT VERBALIZED UNDERSTANDING, ENDOCRINE MD IN TO SEE PT AND REVIEWED POC, PT VERBALIZED UNDERSTANDING, BLOOD SUGARS NOW CHANGED TO ACHS, WILL MONITOR PT
[2019-08-23 13:36] LABS: ALBUMIN 3.4 g/dL (3.4-5.0); CALCIUM 8.8 mg/dL (8.5-10.1); CREATININE 0.9 mg/dL (0.6-1.0); MAGNESIUM 1.6 mg/dL (1.8-2.4); TOTAL BILIRUBIN 0.4 mg/dL (0.2-1.0); TOTAL PROTEIN 6.9 g/dL (6.4-8.2)
[2019-08-23 16:59] VITALS: BP 119/85
--- NOTE | 2019-08-23 18:15 | NUR ---
covid test came back negative, second one drawn and sent this afternoon per ESTEPHANIA Jo
[2019-08-23 20:00] VITALS: BP 110/80
--- NOTE | 2019-08-24 01:29 | NUR ---
ASSESSMENT: PT REMAIN ALERT AND ORIENT TIMES FOUR. UP SBA TO BR. DENIES PAIN. STATE THAT HER ABD IS NO LONGER CRAMPING. NPO FOR ABD US IN THE AM. VSS, AFEBRILE. ST PER PER MONITOR. 2 LITERS OF O2 WHILE ASLEEP. LUNG SOUNDS DIMINISHED. CALLS OUT APPROPRIATELY. DOES HAVE A 6 YR HX OF SARCODOSIS. COVID NEGATIVE TIMES TWO. MESSAGE RELAYED TO DATABASE DEVELOPER JERRICA DO OF SECOND NEGATIVE RESULT. SLOW PROGRESS TOWARDS DC GOALS, WILL CONTINUE TO MONITOR.
[2019-08-24 04:18] VITALS: BP 127/80
[2019-08-24 06:01] LABS: HEMATOCRIT 33.9 % (37.0-47.0); MCHC 32.5 g/dL (28.0-37.0); MCV 79.9 fL (80.0-100.0); RBC 4.25 mil/uL (4.20-5.00); RDW 14.6 % (10.5-14.5); WBC 4.3 thou/uL (4.0-11.0)
[2019-08-24 06:10] LABS: CALCIUM 8.9 mg/dL (8.5-10.1); CREATININE 0.7 mg/dL (0.6-1.0); MAGNESIUM 1.6 mg/dL (1.8-2.4); POTASSIUM 3.6 mmol/L (3.5-5.1)
[2019-08-24 07:09] LABS: HAV IgM AB (ANTI-HAV IgM) Negative (Negative); HEPATITIS B SURFACE AG Negative (Negative); HEPATITIS C VIRUS AB <0.1 (0.0-0.9)
[2019-08-24 08:35] VITALS: BP 123/73
--- NOTE | 2019-08-24 11:01 | NUR ---
PER DOROTHY CUMMINGS PT IS OK TO BE TAKEN OFF OF ISOLATION.
--- NOTE | 2019-08-24 11:57 | HC ---
[facility] [place] [address] [place] [address] CONSULTATION Name: NELIDA LOBO Room #: 354-P ADM IN M.R.#: [id number] Admission: 08/22/19 Attend Phys: Bernardo Bello MD Discharge: Date of : 89 Report #: [id number] THIS REPORT FOR: cc: ERIC ANDERSON MD, Latonya Robles MD, MD ~ CC: Bernardo ANDERSON DATE OF SERVICE: 08/23/2019 ENDOCRINE CONSULTATION NOTE CONSULTING PHYSICIAN: Dr. Felix. REASON FOR CONSULTATION: Uncontrolled type 2 diabetes mellitus. HISTORY OF PRESENT ILLNESS: This is a 29-year-old female patient whose medical background is significant for multiple medical issues including type 2 diabetes mellitus, sarcoidosis, pulmonary dysplasia, who presented to the ER with complaints of shortness of breath. It appears that the patient is maintained chronically on steroids with a baseline prednisone dose of 20 mg daily due to her background issues with sarcoidosis, but with recurrent flares of shortness of breath. On arrival, the patient was found to have blood glucose values that were severely elevated and on further questioning, she indicated that she has not been taking her insulin for 24 hours. She was diagnosed with type 2 diabetes mellitus in 2015 and is maintained on a combination of Trulicity 1.5 mg weekly and Levemir insulin, which had recently been dropped from 40 to 30 units q.p.m. She reports that her blood glucose values have in fact been very well controlled and mostly run between 80 and 150 mg/dL at home without issues of hypoglycemia. The patient is not known to have issues with chronic kidney disease, retinopathy, heart disease or neuropathy. REVIEW OF SYSTEMS: CONSTITUTIONAL: Fatigue, tiredness. No fever, chills or body weight changes. HEENT: Negative for sore throat, sinus pain or ear drainage. PULMONARY: Shortness of breath and cough, baseline issues with sarcoidosis and bronchopulmonary dysplasia. CARDIAC: Negative for chest pain, palpitations, syncope or presyncope. GASTROINTESTINAL: Negative for abdominal pain, nausea, vomiting or changes in bowel movement frequency. NEUROLOGY: Negative for loss of consciousness, severe frequent headaches or seizure activity. DERMATOLOGY: Negative for skin rash, ulceration or discoloration. Otherwise, [address] [address] CONSULTATION Name: NELIDA LOBO Room #: 354-P [facility] IN M.R.#: [id number] Admission: 08/22/19 Attend Phys: Bernardo Bello MD Discharge: Date of : 89 Report #: [id number] review of systems is noncontributory unless mentioned in HPI. PAST MEDICAL HISTORY: 1. Bronchopulmonary dysplasia. 2. Type 2 diabetes mellitus. 3. Sarcoidosis with chronic steroid therapy, maintained on prednisone 20 mg daily. 4. Recurrent bronchitis. OUTPATIENT MEDICATIONS: Include prednisone 20 mg daily, Mucinex b.i.d., Lantus insulin 30 units q.p.m., Trulicity 1.5 mg weekly, mycophenolate mofetil 500 mg b.i.d., CellCept 500 mg b.i.d., tacrolimus 4 mg b.i.d., albuterol p.r.n. ALLERGIES: No known drug allergies. FAMILY HISTORY: Noncontributory. SOCIAL HISTORY: The patient is single, does not have children. Denies use of tobacco, alcohol or illicit drugs. PHYSICAL EXAMINATION: GENERAL: Pleasant -[place] female patient who is not in apparent pain or distress. VITAL SIGNS: Blood pressure is 104/63 mmHg, heart rate is 88 beats per minute, respirations 35 per minute, temperature 35.8 degrees Celsius. CONSTITUTIONAL: The patient is sitting upright in bed, appears comfortable, not in pain or distress. HEENT: Anicteric sclerae. Intact extraocular motions. NECK: Supple, without JVD, carotid bruits or lymphadenopathy. I do not appreciate thyromegaly. CHEST: Noted for moderate air entry bilaterally with scattered rales. No wheeze or crackles. HEART: Regular rate and rhythm without murmurs or gallops. ABDOMEN: Soft, lax. No guarding. Active bowel sounds. EXTREMITIES: Lower extremity exam, trace ankle edema. No skin breaks or ulcerations. Pedal pulses are appreciated. NEUROLOGIC: Awake, alert and oriented to time, place and person. The remainder of her examination is largely nonfocal. PSYCH: Interactive, pleasant and appropriate. Normal mood and affect. Normal thought process. LABORATORY AND DIAGNOSTIC RESULTS: On arrival, her blood glucose was over 500 mg/dL and has since progressively dropped to where it was at 171 mg/dL this morning and most recently at 214 mg/dL. Sodium 132, potassium 4.2, chloride 97, CO2 of 27, anion gap 8, BUN 15, creatinine 0.9, AST 123, lipase 290, total bilirubin 1.0, calcium 9.1, phosphorus 3.6, magnesium 1.7, glucose on arrival as [facility] [address] [place] [address] CONSULTATION Name: NELIDA LOBO Room #: 354-P [facility] IN [place].#: [id number] Admission: 08/22/19 Attend Phys: Bernardo Bello MD Discharge: Date of : 89 Report #: [id number] mentioned above 500, alkaline phosphatase 450, ALT 180, total protein 8.5, albumin 3.9. EGFR 90. Lactic acid 1.6. Troponin negative. CRP 14.1. White blood count 4.6, hemoglobin 12.8, hematocrit 38.8, platelets 149. Hemoglobin A1c in 10/2017 was 8.5%, current hemoglobin A1c is pending. The patient has tested negative for COVID-19. A chest x-ray was done on arrival and shows multifocal infiltrates concerning for pneumonia. ASSESSMENT AND PLAN: 1. Type 2 diabetes mellitus. As noted above, the patient has had this diagnosis for a few years and seems to have done well on a combination of Levemir insulin and Trulicity. In fact, she has been able to drop her Levemir insulin dose recently from 40 to 30 units based on the improvement in her blood glucose values. On arrival, the patient demonstrated severe hyperglycemia, which is likely the result of her acute events, missing her Levemir dose on the prior day, as well as the need to use IV steroids. Since then, the patient has done well. She does not have an anion gap. I do not believe that we need IV insulin therapy at this point in time. Instead, I will resort to Lantus insulin and will actually drop the dose to 25 units q.p.m. based on the assumption that she might not need the same doses she does at home due to restricted food intake. I will also place the patient on low intensity Humalog supplemental scale to use as needed based on her blood glucose values a.c. and at bedtime. The patient noted that she had GI side effects towards metformin in the past, but did not mind using low dose metformin therapy while here, which I believe will be helpful in the setting of steroid-induced hyperglycemia. I will use metformin 500 mg b.i.d. for this purpose. 2. Pneumonia. The patient has extensive pulmonary background issues including sarcoidosis and bronchopulmonary dysplasia. Her presentation is suspicious for pneumonia. She has received azithromycin and ceftriaxone. She has ruled out for COVID-19 with results being negative just prior to this dictation. 3. Sarcoidosis. The patient is maintained on prednisone 20 mg daily for this issue. She is currently receiving methylprednisolone 40 mg IV. I certainly appreciate this consultation by Dr. Felix. <ELECTRONICALLY SIGNED> By: Latonya Jarrell MD 08/24/19 1157 [id number] [id number] Latonya Jarrell MD /nt
--- NOTE | 2019-08-24 13:53 | NUR ---
PT CARE ASSUMED AT 0700. A&Ox4. PT UP INDEPENDENTLY IN THE ROOM. OFF OF ISOLATION. TWO NEGATIVE COVID RESULTS. IV PATENT WITH NO REDNESS OR EDEMA, SALINE LOCKED. DC TELE. NSR ON THE MONITOR. MAGNESIUM LOW AT 1.6 TREATED WITH ONE BAG OF MAGNESIUM. ACHS WITH COVERAGE. BM TODAY. ON 2 L PRN AT HOME WITH 3L AT NIGHT. CALL LIGHT IN REACH. WILL CONTINUE TO MONITOR UNTIL BED AVAILABLE ON MEDSURG UNIT.
[2019-08-24 14:46] LABS: HEMATOCRIT 37.6 % (37.0-47.0); HEMOGLOBIN 12.4 gm/dL (12.0-15.0); MCH 26.4 pg (26.0-34.0); MCHC 32.9 g/dL (28.0-37.0); MCV 80.2 fL (80.0-100.0); RBC 4.69 mil/uL (4.20-5.00); RDW 14.3 % (10.5-14.5); WBC 2.9 thou/uL (4.0-11.0)
--- NOTE | 2019-08-24 16:50 | NUR ---
INITIAL ASSESSMENT: Received consult. SW reviewed chart and spoke with nursing and attending physician. Pt placed in Enhanced Isolation. Pt has had two negative COVID-19 tests. Pt to have abdominal US today. Discharge home is anticipated for tomorrow. SW spoke with pt via phone. Introduced role of SW. Pt appears to be alert/orientated. Pt reports she lives at home with family. Prior to admission, pt was not using any DME for ambulation. Pt has a nebulizer and home O2 through [employer]. Pt is normally on 3L at nighttime and PRN throughout the day. No hx of services or post-acute placement. Pt's PCP is Dr. Pattie Perkins at [facility]. Pt denies having any discharge needs. SW is following to assist as needed with discharge planning.
[2019-08-24 17:33] VITALS: BP 123/76
--- NOTE | 2019-08-24 18:06 | NUR ---
PT TRANSFERRED TO FLOOR AROUND 175. ALERT AND ORIENTED. NO COMPLAINTS AT THIS TIME. MONITORING BLOOD SUGAR. HIGH WHEN ARRIVED ON FLOOR, NEED TO CONTACT ENDO. WILL PAGE. PIV WITHOUT ISSUES. FALL PRECAUTIONS IN PLACE, EDUCATION PROVIDED. CALL LIGHT IN REACH. WILL MAC
[2019-08-24 20:44] VITALS: BP 133/71
--- NOTE | 2019-08-25 01:39 | NUR ---
ASSUMED PT CARE AROUND 1930. AXOX4. INDEPENDENT WITH ADLs. VSS. NO S/S ACUTE DISTRESS NOTED OR REPORTED AT THIS TIME. WILL CONT TO MONITOR FOR ANY CHANGES IN CONDITION.
[2019-08-25 05:51] LABS: HEMATOCRIT 34.6 % (37.0-47.0); HEMOGLOBIN 11.7 gm/dL (12.0-15.0); MCH 26.8 pg (26.0-34.0); MCHC 33.8 g/dL (28.0-37.0); MCV 79.2 fL (80.0-100.0); RBC 4.37 mil/uL (4.20-5.00); RDW 14.3 % (10.5-14.5); WBC 4.7 thou/uL (4.0-11.0)
[2019-08-25 06:19] LABS: CALCIUM 9.3 mg/dL (8.5-10.1); CREATININE 0.8 mg/dL (0.6-1.0); MAGNESIUM 1.7 mg/dL (1.8-2.4); POTASSIUM 3.7 mmol/L (3.5-5.1)
[2019-08-25 07:00] VITALS: BP 136/85
--- NOTE | 2019-08-25 10:21 | NUR ---
ASSUMED CARE AT 0700. ALERT AND ORIENTED. VSSA/O2 BASELINE. NO COMPLAINTS. TOLERATING DIET, BLOOD SUGARS MONITORED. PIV WITHOUT ISSUES. PT IS UAL, STEADY GAIT. EDUCATION PROVIDED TO CALL IS NEEDS ARISE. CALL LIGHT IN REACH. WILL CONTINUE TO MONITOR
[2019-08-25] MEDS ORDERED: LANTUS SUBQ (11:02)
[2019-08-25] MEDS ORDERED: GLUCOPHAGE500 MG PO (11:02)
[2019-08-25] MEDS ORDERED: AMARYL4 MG PO (11:03)
[2019-08-25] MEDS ORDERED: CEFDINIR300 MG PO (11:04)
[2019-08-25] MEDS ORDERED: PREDNISONE 10 M10 M1 PO (11:04)
[2019-08-25 11:09] VITALS: BP 136/85
--- NOTE | 2019-08-25 12:11 | NUR ---
CARE TEAM INDICATED THAT PT IS MEDICALLY STABLE TO DC HOME THIS DAY WITH NO NEEDS. PT HAD HOME O2 AND NEBULIZER. NO OTHER CM INTERVENTION INDICATED. CASE CLOSED.
== END 2019-08-25 12:10 | disposition home or self-care (01) | DRG 871 ==
LOC: ER 16:56 → EROBS 19:44 → 3W 19:44 → 4W 08-24 17:37
PROVIDERS: Emergency Medicine; Nurse Practitioner Family; Physician Assistant; ADMIT Internal Medicine; ATTEND Internal Medicine
DX: A41.9 Sepsis, unspecified organism (principal); E11.00 Type 2 diabetes mellitus with hyperosmolarity without nonketotic hyperglycemic-hyperosmolar coma (NKHHC); J18.9 Pneumonia, unspecified organism; P27.1 Bronchopulmonary dysplasia originating in the perinatal period; J96.21 Acute and chronic respiratory failure with hypoxia; N17.0 Acute kidney failure with tubular necrosis; N17.9 Acute kidney failure, unspecified; E87.1 Hypo-osmolality and hyponatremia; E11.65 Type 2 diabetes mellitus with hyperglycemia; Z20.828 Contact with and (suspected) exposure to other viral communicable diseases; E11.40 Type 2 diabetes mellitus with diabetic neuropathy, unspecified; I50.9 Heart failure, unspecified; D86.9 Sarcoidosis, unspecified; R74.0 Nonspecific elevation of levels of transaminase and lactic acid dehydrogenase [LDH]; E11.319 Type 2 diabetes mellitus with unspecified diabetic retinopathy without macular edema; R91.8 Other nonspecific abnormal finding of lung field; D64.9 Anemia, unspecified; Z88.8 Allergy status to other drugs, medicaments and biological substances; Z79.52 Long term (current) use of systemic steroids; Z98.49 Cataract extraction status, unspecified eye; Z83.6 Family history of other diseases of the respiratory system; Z83.3 Family history of diabetes mellitus
CPT/HCPCS: 10047; 10879

== ENCOUNTER → 2019-09-29 | Outpatient (CLI) | payer OTHER ==
[~2019-09-29] MED LIST changes: +AMARYL4 MG PO; +CEFDINIR300 MG PO; +CELLCEPT500 MG PO; +ENVARSUS XR4 MG PO; +FLONASE 0.05%50 MCG NASAL; +FUROSEMIDE 20 M20 MG PO; +GLUCOPHAGE500 MG PO; +HUMIRA40 MG/0.1 SQ; +LANTUS SUBQ; +MYCOPHENOLATE500 MG PO; +PREDNISONE 10 M10 M1 PO
== END ==
LOC: RAD 09:42
PROVIDERS: ATTEND Internal Medicine Rheumatology
DX: R05 Cough (principal); Z87.01 Personal history of pneumonia (recurrent)